=== PATIENT | female | born 1955 | race Caucasian/White ===

== ENCOUNTER 2019-10-28 19:30 | Outpatient (CLI) | payer BC | END 2019-10-28 19:31 | disposition home or self-care (01) | LOC: SLEEPLAB 19:30 | PROVIDERS: ATTEND Internal Medicine | DX: G47.33 Obstructive sleep apnea (adult) (pediatric) (principal); R53.83 Other fatigue; E66.9 Obesity, unspecified; R06.83 Snoring; F41.9 Anxiety disorder, unspecified; G47.00 Insomnia, unspecified; H47.019 Ischemic optic neuropathy, unspecified eye; I10 Essential (primary) hypertension; H47.011 Ischemic optic neuropathy, right eye; G47.12 Idiopathic hypersomnia without long sleep time; Z68.33 Body mass index [BMI] 33.0-33.9, adult | CPT/HCPCS: 95810 ==